=== PATIENT | female | born 1995 ===

== ENCOUNTER 2018-07-03 15:22 | Emergency (ER) | payer OTHER ==
[2018-07-03 15:31] VITALS: O2SAT 100
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
[2018-07-03] MEDS ORDERED: Tdap Vaccine 0.5 ml Vial (10-64 yrs) IM ONE ×2 (16:35→16:59)
[2018-07-03 17:04] LABS: SQUAMOUS EPITHIAL 1 /hpf (0-5); URINE BACTERIA RARE (<OCC); URINE BILIRUBIN NEGATIVE (NEGATIVE); URINE BLOOD SMALL (NEGATIVE); URINE CLARITY CLOUDY (Clear); URINE COLOR YELLOW (YELLOW); URINE GLUCOSE (UA) NEG (Normal); URINE LEUKOCYTE ESTERASE NEG Leu/uL (Negative); URINE PROTEIN 30 mg/dL (NEGATIVE)
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
[2018-07-03 19:08] LABS: BASO % 0.3 % (0.0-2.0); HEMOGLOBIN 14.1 g/dL (12.0-16.0); LYMPH # 1.8 K/uL (1.0-4.3); LYMPH % 16.7 % (20.0-40.0); MEAN CELL VOLUME 92.4 fl (81.0-99.0); MEAN CORPUSCULAR HEMOGLOBIN 31.4 pg (27.0-31.0); MEAN CORPUSCULAR HGB CONC 33.9 g/dL (33.0-37.0); MEAN PLATELET VOLUME 7.3 fl (7.2-11.7); MONO # 0.7 K/uL (0.0-0.8); MONO % 6.8 % (0.0-10.0); NEUT % 76.2 % (50.0-75.0); NRBC % 0.1 % (0.0-0.0); RBC 4.5 Mil/uL (3.80-5.20); WHITE BLOOD COUNT 10.5 K/uL (4.8-10.8)
[2018-07-03 19:30] LABS: ALB/GLOB RATIO 1.5 (1.0-2.1); ALBUMIN 4.8 g/dL (3.5-5.0); ALT/SGPT 28 U/L (9-52); AST/SGOT 29 U/L (14-36); BLOOD UREA NITROGEN 11 mg/dl (7-17); CALCIUM 9.5 mg/dL (8.4-10.2); GFR AFRICAN-AMERICAN > 60; GFR NON-AFRICAN AMERICAN > 60
[2018-07-03] MEDS ORDERED: Iohexol 300 100 ML IJ ONE (20:13)
[2018-07-03] MEDS ORDERED: Sodium Chloride 0.9% 50 ML IV ONE (20:13)
[2018-07-03 21:28] VITALS: BP 108/59; PULSE 54; RESP 16; TEMP 98.7
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
== END 2018-07-03 21:52 | disposition home or self-care (01) ==
LOC: H.ER 15:22
DX: S02.2XXA Fracture of nasal bones, initial encounter for closed fracture (principal); T14.8XXA Other injury of unspecified body region, initial encounter; Y04.0XXA Assault by unarmed brawl or fight, initial encounter; Y92.89 Other specified places as the place of occurrence of the external cause
CPT/HCPCS: 70450; 70486; 74177; 80053; 81003; 81025; 85025; 90471; 90715; 99284; Q9967